=== PATIENT | female | born 1960 | race Caucasian/White ===

== ENCOUNTER → 2017-02-07 | Outpatient (CLI) | payer OTHER ==
[~2017-02-07] MED LIST: AMIT10TA6 PO; ATOR-14 PO; CALCTAB7 PO; CHOL100027 PO; EFFSR150 PO; LORA-741 PO; TRAM-10 PO
--- NOTE | 2017-02-07 11:10 | DIAGNOSTIC IMAGING REPORT ---
MRI CERVICAL WITHOUT CONTRAST CLINICAL HISTORY: Neck pain with right arm radiculopathy. TECHNIQUE: Sagittal and axial T1, T2 and STIR images were obtained. COMPARISON STUDY: Conventional radiographic study dated 07/18/2012 There are no suspicious areas of marrow replacement. No intrinsic cervical cord lesions are visualized. C2-3: There is no evidence of disc bulge or focal herniation. There is no spinal or foraminal stenosis. C3-4: There is no evidence of disc bulge or focal herniation. There is no spinal or foraminal stenosis. C4-5: There is a small right foraminal disc protrusion. There is mild right-sided foraminal narrowing. There is no significant spinal stenosis C5-6 :There are postsurgical changes of a discectomy and spinal fusion. C6-7: There is no evidence of disc bulge or focal herniation. There is no evidence of spinal or foraminal stenosis. C7-T1: There is no evidence of disc bulge or focal herniation. There is no evidence of spinal or foraminal stenosis. IMPRESSION: 1. Postsurgical changes of a C5-C6 discectomy and anterior cervical fusion 2. Small right-sided foraminal disc protrusion at the C4-5 level with mild secondary foraminal narrowing Electronically signed by: Rg Thomas M.D. 02/07/2017 11:08 AM Dictated Date/Time: 02/07/2017 11:04 AM
== END | disposition home or self-care (01) ==
LOC: C.MRI 09:41
PROVIDERS: ATTEND Orthopaedic Surgery Orthopaedic Surgery of the Spine
DX: M54.2 Cervicalgia (principal)